=== PATIENT | female | born 1970 | race Caucasian/White ===

== ENCOUNTER → 2016-08-11 | Outpatient (CLI) | payer OTHER ==
--- NOTE | 2016-08-11 14:36 | RAD ---
Exam: X-ray lumbar spine 5 views. History: Back and left hip pain for 6 months, no injury. Date of service: 08/11/16. Comparison: None available Findings: AP, lateral, both obliques and coned view of the lumbosacral junction is obtained. Normal sagittal alignment is preserved. Transitional anatomy at the lumbosacral junction. Vertebral body heights and intervertebral disc spaces are maintained. There is no monster or retrolisthesis. No compression fracture. Oblique views demonstrate intact pars interarticularis. There is extensive stool throughout the colon. No abnormal calcification. Impression: No acute abnormality seen in the lumbosacral spine. Extensive stool scattered throughout the colon. Correlate clinically for constipation.]
--- NOTE | 2016-08-11 14:38 | RAD ---
Exam performed: Single view pelvis and left hip. History: Low back and left hip pain for 6 months, no injury. Date of service: 08/11/16. Comparison: None available Findings: AP view of the pelvis and frog leg lateral view of the left hip are obtained. Normal alignment of bilateral hip and sacroiliac joint is preserved. There is no acute fracture or dislocation. Old bilateral inferior pubic rami fractures are identified. Nonspecific bowel gas pattern. Impression: No acute abnormality seen in the single view pelvis and left hip.
== END | disposition home or self-care (01) ==
LOC: DXRADRC 14:03
PROVIDERS: ATTEND Physician Assistant
DX: M54.10 Radiculopathy, site unspecified (principal); M54.16 Radiculopathy, lumbar region
CPT/HCPCS: 72110; 73501

== ENCOUNTER 2017-01-27 20:38 | Emergency (ER) | payer OTHER ==
[~2017-01-27] VITALS: Ht 152.4 cm; Wt 66.0 kg
[2017-01-27] MEDS ORDERED: LUBI8CAP4 PO (22:11)
[2017-01-27] MEDS ORDERED: KETOROLAC 30 MG/ML VIAL. IV ONE (22:45)
--- NOTE | 2017-01-27 22:47 | RAD ---
EXAM: Abdomen and pelvis CT without intravenous contrast. HISTORY: Right flank pain. TECHNIQUE: Computed tomographic images of the abdomen and pelvis were obtained without contrast. Multiplanar reformatting was performed. *One or more of the following individualized dose reduction techniques were utilized for this examination: 1. Automated exposure control. 2. Adjustment of the mA and/or kV according to patient size. 3. Use of iterative reconstruction technique. COMPARISON: None. FINDINGS: Evaluation of the lower thorax is unremarkable. There is a 5 mm hypodense lesion within the posterior right hepatic lobe, likely a cyst or hemangioma. The gallbladder is contracted. The pancreas, spleen and adrenal glands are unremarkable. There is no evidence of nephrolithiasis or obstructive uropathy. The left kidney is under rotated, a normal variant. No abnormally thickened or dilated loop of bowel is seen. The uterus is surgically absent. There is no pathologically enlarged lymph node. There are multiple thoracic and lumbar endplate Schmorl's nodes. There are a few bone islands. There is no suspicious osseous lesion. There is a tiny amount of gas within the bladder likely due to recent catheterization. IMPRESSION: 1. Tiny amount of gas within the urinary bladder likely due to recent catheterization. There is no evidence of nephrolithiasis or obstructive uropathy. 2. Tiny suspected cyst or hemangioma within the right hepatic lobe. Electronically signed by: Janiya Flanagan MD (01/27/2017 10:44 PM) [facility]
[2017-01-27 23:31] LABS: BASO # 0.1 x10^3/uL (0.0-0.2); BASO % 1 % (0-3); EOS # 0.1 x10^3/uL (0.0-0.7); EOS % 2 % (0-3); HEMATOCRIT 42.4 % (36.0-47.0); HEMOGLOBIN 14.6 g/dL (12.0-15.5); LYMPH % 47 % (24-48); MEAN CORPUSCULAR HEMOGLOBIN 33 pg (25-35); MEAN CORPUSCULAR HGB CONC 34 g/dL (31-37); MEAN CORPUSCULAR VOLUME 96 fL (79-100); MONO # 0.5 x10^3/uL (0.0-1.1); MONO % 8 % (0-9); NEUT # 2.7 x10^3uL (1.8-7.7); NEUT % 42 % (31-73); PLATELET COUNT 263 x10^3/uL (140-400); RED BLOOD COUNT 4.43 x10^6/uL (3.50-5.40); RED CELL DISTRIBUTION WIDTH 12.8 % (11.5-14.5); WHITE BLOOD COUNT 6.4 x10^3/uL (4.0-11.0)
[2017-01-27 23:42] LABS: ALBUMIN/GLOBULIN RATIO 1.1 (1.0-1.7); CALCIUM 9.2 mg/dL (8.5-10.1); CREATININE 0.9 mg/dL (0.6-1.0); GFR 67.7; POTASSIUM 3.5 mmol/L (3.5-5.1); TOTAL BILIRUBIN 0.3 mg/dL (0.2-1.0); TOTAL PROTEIN 7.8 g/dL (6.4-8.2)
[2017-01-27 23:53] LABS: BILIRUBIN,URINE NEG (NEG); CLARITY,URINE HAZY; COLOR,URINE STRAW; GLUCOSE,URINE NEG (NEG); NITRITE,URINE NEG (NEG); UROBILINOGEN,URINE 1 mg/dL (0.2 mg/dL)
[2017-01-27 23:54] LABS: AMORPHOUS SEDIMENT,UR PRESENT /HPF; BACTERIA,URINE FEW /HPF (0-FEW); SQUAMOUS EPITHELIAL CELL,UR FEW /LPF; WBC,URINE 0 /HPF (0-4)
--- NOTE | 2017-01-28 01:00 | PHYS DOC ---
Adult General Chief Complaint Chief Complaint: FLANK PAIN HPI HPI 46-year-old female with no prior history of kidney stones now complaining of low back pain for days. Patient has soreness on the right side which is mostly constant. She has no paroxysms of acute severe sharp pain. She reports normal bowel and bladder habits. Pain is worse with movement. She has no abdominal or pelvic pain. Patient reports normal bowel bladder habits. She does have problems with the disks in her low back but she is never required surgery for that. Review of Systems Review of Systems Constitutional: Denies fever or chills [] Eyes: Denies change in visual acuity, redness, or eye pain [] HENT: Denies nasal congestion or sore throat [] Respiratory: Denies cough or shortness of breath [] Cardiovascular: No additional information not addressed in HPI [] GI: Denies abdominal pain, nausea, vomiting, bloody stools or diarrhea [] : Denies dysuria or hematuria [] Musculoskeletal: Denies back pain or joint pain [] Integument: Denies rash or skin lesions [] Neurologic: Denies headache, focal weakness or sensory changes [] Endocrine: Denies polyuria or polydipsia [] Current Medications Current Medications Current Medications Medications (Trade) Dose Ordered Sig/Priscilla Start Time Stop Time Status Last Admin Dose Admin Ketorolac Tromethamine (Toradol) 30 mg 1X ONCE 01/27/17 22:45 01/27/17 22:46 DC 01/27/17 22:37 30 MG Allergies Allergies Allergies Coded Allergies Type Severity Reaction Last Updated Verified No Known Drug Allergies 01/27/17 No Physical Exam Physical Exam Well-appearing patient no acute distress benign abdomen and pelvis. Right lumbar soft tissue tenderness as described below. Negative straight leg raise no saddle anesthesia neurovascularly intact bilateral lower extremities. Constitutional: Well developed, well nourished, no acute distress, non-toxic appearance. [] HENT: Normocephalic, atraumatic, bilateral external ears normal, oropharynx moist, no oral exudates, nose normal. [] Eyes: PERRLA, EOMI, conjunctiva normal, no discharge. [] Neck: Normal range of motion, no tenderness, supple, no stridor. [] Cardiovascular:Heart rate regular rhythm, no murmur [] Lungs & Thorax: Bilateral breath sounds clear to auscultation [] Abdomen: Bowel sounds normal, soft, no tenderness, no masses, no pulsatile masses. [] Skin: Warm, dry, no erythema, no rash. [] Back: Soft tissue tenderness right lumbar distribution no midline or spinal tenderness. No harper CVA tenderness. Benign abdomen and pelvis Extremities: No tenderness, no cyanosis, no clubbing, ROM intact, no edema. [] Neurologic: Alert and oriented X 3, normal motor function, normal sensory function, no focal deficits noted. [] Psychologic: Affect normal, judgement normal, mood normal. [] Current Patient Data Lab Results Laboratory Tests Test 01/27/17 23:15 White Blood Count 6.4 x10^3/uL (4.0-11.0) Red Blood Count 4.43 x10^6/uL (3.50-5.40) Hemoglobin 14.6 g/dL (12.0-15.5) Hematocrit 42.4 % (36.0-47.0) Mean Corpuscular Volume 96 fL (79-100) Mean Corpuscular Hemoglobin 33 pg (25-35) Mean Corpuscular Hemoglobin Concent 34 g/dL (31-37) Red Cell Distribution Width 12.8 % (11.5-14.5) Platelet Count 263 x10^3/uL (140-400) Neutrophils (%) (Auto) 42 % (31-73) Lymphocytes (%) (Auto) 47 % (24-48) Monocytes (%) (Auto) 8 % (0-9) Eosinophils (%) (Auto) 2 % (0-3) Basophils (%) (Auto) 1 % (0-3) Neutrophils # (Auto) 2.7 x10^3uL (1.8-7.7) Lymphocytes # (Auto) 3.0 x10^3/uL (1.0-4.8) Monocytes # (Auto) 0.5 x10^3/uL (0.0-1.1) Eosinophils # (Auto) 0.1 x10^3/uL (0.0-0.7) Basophils # (Auto) 0.1 x10^3/uL (0.0-0.2) Urine Collection Type Unknown Urine Color Straw Urine Clarity Hazy Urine pH 7.0 Urine Specific [place] 1.020 Urine Protein Neg (NEG-TRACE) Urine Glucose (UA) Neg mg/dL (NEG) Urine Ketones (Stick) Trace mg/dL (NEG) Urine Blood Trace (NEG) Urine Nitrite Neg (NEG) Urine Bilirubin Neg (NEG) Urine Urobilinogen Dipstick 1 mg/dL (0.2 mg/dL) Urine Leukocyte Esterase Neg (NEG) Urine RBC 1-2 /HPF (0-2) Urine WBC 0 /HPF (0-4) Urine Squamous Epithelial Cells Few /LPF Urine Amorphous Sediment Present /HPF Urine Bacteria Few /HPF (0-FEW) Urine Mucus Mod /LPF Sodium Level 143 mmol/L (136-145) Potassium Level 3.5 mmol/L (3.5-5.1) Chloride Level 104 mmol/L (98-107) Carbon Dioxide Level 30 mmol/L (21-32) Anion Gap 9 (6-14) Blood Urea Nitrogen 15 mg/dL (7-20) Creatinine 0.9 mg/dL (0.6-1.0) Estimated GFR (Cockcroft-Gault) 67.7 BUN/Creatinine Ratio 17 (6-20) Glucose Level 107 mg/dL (70-99) H Calcium Level 9.2 mg/dL (8.5-10.1) Total Bilirubin 0.3 mg/dL (0.2-1.0) Aspartate Amino Transferase (AST) 14 U/L (15-37) L Alanine Aminotransferase (ALT) 17 U/L (14-59) Alkaline Phosphatase 96 U/L (46-116) Total Protein 7.8 g/dL (6.4-8.2) Albumin 4.0 g/dL (3.4-5.0) Albumin/Globulin Ratio 1.1 (1.0-1.7) Lipase 182 U/L (73-393) EKG EKG [] Course & Med Decision Making Course & Med Decision Making Pertinent Labs and Imaging studies reviewed. (See chart for details) CT abdomen and pelvis with what ears to be a right liver hemangioma[(. Patient aware of this incidental finding will follow-up with her primary care doctor for further workup and imaging for definitive diagnosis as needed. Patient were to take ibuprofen 800 mg every 6 hours and Tylenol as well as needed for pain. Remainder of labs and urinalysis benign. She agrees with outpatient follow-up and strict return precautions given] [] Dragon Disclaimer Dragon Disclaimer This chart was dictated in whole or in part using Voice Recognition software in a busy, high-work load, and often noisy Emergency Department environment. It may contain unintended and wholly unrecognized errors or omissions. Departure Departure: Impression: Primary Impression: Low back pain Additional Impressions: Lumbar strain Liver hemangioma Disposition: HOME, SELF-CARE Condition: IMPROVED Referrals: DENISE ESPINAL DO (PCP) Patient Instructions: Back Pain, Adult Additional Instructions: It appears that you have musculoskeletal low back pain. Your CAT scan shows no evidence of kidney stone or other abnormality except an incidental finding of a mass in the right lobe of her liver which is most likely a hemangioma versus a cyst. This is likely to be a benign finding however due follow-up with your doctor for reevaluation and to discuss further imaging for definitive diagnosis and radiographic surveillance as needed. Take 800 mg of ibuprofen every 6 hours and do warm soaks and gentle stretches. Follow-up with your doctor in 1-2 days and return immediately for new severe worsening symptoms Problem Qualifiers HERON LAMBERT MD Jan 28, 2017 01:00
[2017-01-28] MEDS ORDERED: HYDROcodone/APAP 5/325MG 1 TAB TABLET ONE (01:11)
[2017-01-28 01:25] VITALS: BP 136/90
[2017-01-28] MEDS ORDERED: HYDROcodone/APAP 5/325MG 1 TAB TABLET PO ONE (01:30)
[2017-01-28] MEDS ORDERED: CYCLOBENZAPRINE 10 MG TABLET. PO ONE (01:30)
== END 2017-01-28 01:28 | disposition home or self-care (01) ==
LOC: ER 20:38
DX: S39.012A Strain of muscle, fascia and tendon of lower back, initial encounter (principal); D18.03 Hemangioma of intra-abdominal structures; X58.XXXA Exposure to other specified factors, initial encounter; Y93.89 Activity, other specified; Y99.8 Other external cause status; Y92.89 Other specified places as the place of occurrence of the external cause
CPT/HCPCS: 36415; 74176; 80053; 81001; 83690; 85025; 96374; 99285; J1885

== ENCOUNTER 2017-10-12 08:29 | Emergency (ER) | payer OTHER ==
[~2017-10-12] VITALS: Ht 152.4 cm; Wt 65.8 kg
[~2017-10-12 08:29] MED LIST: LUBI8CAP4 PO
[2017-10-12] MEDS ORDERED: NAPR-683 PO (09:19)
[2017-10-12] MEDS ORDERED: METH4TAB2 PO (09:19)
[2017-10-12] MEDS ORDERED: CYCL-331 PO (09:19)
[2017-10-12] MEDS ORDERED: HYDR-971 PO (09:19)
--- NOTE | 2017-10-12 09:19 | PHYS DOC ---
Past History Past Medical History: No Pertinent History, Other Additional Past Medical Histor: chronic back pain Past Surgical History: Hysterectomy, Other Smoking: Non-smoker Alcohol Use: Heavy Additional Alcohol Information: 1-2 DRINKS DAILY Drug Use: None Adult General Chief Complaint Chief Complaint: BACK PAIN OR INJURY [facility] 47-year-old female patient complaining of right lower back pain for 2 weeks as a constant pain that getting force with movement and activity without history of injury. Patient denies fever and chills, urinary and bowel incontinence, focal neuro deficit. Rated her pain 9/10. Patient states she took over-the- counter pain medication without improvement of her pain. Patient states she has had history of chronic back pain and seen by back specialist who recommended physical therapy. Review of Systems Review of Systems Constitutional: Denies fever or chills [] Eyes: Denies change in visual acuity, redness, or eye pain [] HENT: Denies nasal congestion or sore throat [] Respiratory: Denies cough or shortness of breath [] Cardiovascular: No additional information not addressed in HPI [] GI: Denies abdominal pain, nausea, vomiting, bloody stools or diarrhea [] : Denies dysuria or hematuria [] Musculoskeletal: Reports back pain Integument: Denies rash or skin lesions [] Neurologic: Denies headache, focal weakness or sensory changes [] Endocrine: Denies polyuria or polydipsia [] All other systems were reviewed and found to be within normal limits, except as documented in this note. Allergies Allergies Allergies Coded Allergies Type Severity Reaction Last Updated Verified No Known Drug Allergies 10/12/17 No Physical Exam Physical Exam Constitutional: Well developed, well nourished, mild distress, non-toxic appearance. [] HENT: Normocephalic, atraumatic Eyes: PERRLA, EOMI, conjunctiva normal, no discharge. [] Neck: Normal range of motion, no tenderness, supple, no stridor. [] Cardiovascular:Heart rate regular rhythm, no murmur [] Lungs & Thorax: Bilateral breath sounds clear to auscultation [] Abdomen: Bowel sounds normal, soft, no tenderness, no masses, no pulsatile masses. [] Skin: Warm, dry, no erythema, no rash. [] Back: No midline tenderness, no deformity no CVA tenderness, right paraspinal muscle spasm. [] Extremities: No tenderness, no cyanosis, no clubbing, ROM intact, no edema. [] Neurologic: Alert and oriented X 3, normal motor function, normal sensory function, no focal deficits noted. [] Psychologic: Affect normal, judgement normal, mood normal. [] Current Patient Data Vital Signs Vital Signs Date Time Temp Pulse Resp B/P (MAP) Pulse Ox O2 Delivery O2 Flow Rate FiO2 10/12/17 08:43 98.3 71 18 98 Room Air EKG EKG [] Radiology/Procedures Radiology/Procedures [] Course & Med Decision Making Course & Med Decision Making Pertinent Imaging studies reviewed. (See chart for details) Evaluation of patient in ER showed 47-year-old female patient with history of chronic back pain and increasing pain for the last 3 weeks. Patient had unremarkable physical exam. Patient treated with Toradol in ER and instructed to follow with her back specialist. Dragon Disclaimer Dragon Disclaimer This electronic medical record was generated, in whole or in part, using a voice recognition dictation system. Departure Departure: Impression: Primary Impression: Acute lumbosacral myofascial strain Additional Impression: Chronic back pain Referrals: MORELIA RODRIGUEZ (PCP) Patient Instructions: Lumbosacral Strain Additional Instructions: Apply ice on your primary Follow-up with your primary care physician in 3-5 days Return to ER if not getting better Scripts Cyclobenzaprine Hcl (CYCLOBENZAPRINE HCL) 10 Mg Tablet 1 TAB PO TID, #30 TAB Prov: JAYCEE GUZMAN MD 10/12/17 Hydrocodone Bit/Acetaminophen (NORCO 5-325 TABLET) 1 Each Tablet 1 TAB PO PRN Q6HRS PRN for PAIN, #14 TAB 0 Refills Prov: JAYCEE GUZMAN MD 10/12/17 Methylprednisolone (MEDROL) 4 Mg Tab.ds.pk 1 PKG PO UD, #1 PKG Prov: JAYCEE GUZMAN MD 10/12/17 Naproxen (NAPROSYN) 500 Mg Tablet 1 TAB PO BID, #20 TAB 1 Refill Prov: JAYCEE GUZMAN MD 10/12/17 Problem Qualifiers JAYCEE GUZMAN MD Oct 12, 2017 09:19
[2017-10-12 09:33] VITALS: BP 146/98
[2017-10-12] MEDS ORDERED: KETOROLAC 60 MG/2 ML VIAL. IM ONE (09:40)
== END 2017-10-12 09:34 | disposition home or self-care (01) ==
LOC: ER 08:29
DX: S39.012A Strain of muscle, fascia and tendon of lower back, initial encounter (principal); G89.29 Other chronic pain; Z90.710 Acquired absence of both cervix and uterus; F10.20 Alcohol dependence, uncomplicated; X58.XXXA Exposure to other specified factors, initial encounter; Y93.89 Activity, other specified; Y99.8 Other external cause status; Y92.89 Other specified places as the place of occurrence of the external cause
CPT/HCPCS: 96372; 99283; J1885

== ENCOUNTER → 2018-06-28 | Outpatient (CLI) | payer OTHER ==
[~2018-06-28] MED LIST changes: +CYCL-331 PO; +HYDR-3165 PO; +METH4TAB2 PO; +NAPR-683 PO
--- NOTE | 2018-06-28 15:41 | RAD ---
DATE: 06/28/2018 EXAM: MAMMO JUANPABLO SCREENING BILATERAL HISTORY: Routine screening COMPARISON: Baseline study This study was interpreted with the benefit of Computerized Aided Detection (CAD). Breast Density: SCATTERED The breast parenchyma shows scattered fibroglandular densities. Breast parenchyma level B. FINDINGS: 2-D and 3-D tomosynthesis imaging was performed in CC and MLO projections. No spiculated mass or architectural distortion is seen. No suspicious microcalcifications are evident. Benign-appearing lymph node type densities are present in the axillary regions. IMPRESSION: There is no mammographic evidence of malignancy in either breast. BI-RADS CATEGORY: 2 BENIGN FINDING(S) RECOMMENDED FOLLOW-UP: 12M 12 MONTH FOLLOW-UP PQRS compliance statement: Patient information was entered into a reminder system with a target due date for the next mammogram. Mammography is a sensitive method for finding small breast cancers, but it does not detect them all and is not a substitute for careful clinical examination. A negative mammogram does not negate a clinically suspicious finding and should not result in delay in biopsying a clinically suspicious abnormality. "Our facility is accredited by the [employer] Mammography Program."
== END | disposition home or self-care (01) ==
LOC: MAMMO 14:46
PROVIDERS: ATTEND Physician Assistant
DX: Z12.31 Encounter for screening mammogram for malignant neoplasm of breast (principal)
CPT/HCPCS: 77063; 77067